=== PATIENT | female | born 1980 | race Two or more races ===

== ENCOUNTER 2021-06-22 15:21 | Emergency (ER) | payer MEDICAID ==
[~2021-06-22] VITALS: Ht 170.2 cm; Wt 81.6 kg
[2021-06-22 15:27] VITALS: BP 132/86
== END 2021-06-22 18:20 | disposition left against medical advice (07) ==
LOC: EDBD 15:21 → ER 15:21
DX: R10.84 Generalized abdominal pain (principal); R11.2 Nausea with vomiting, unspecified